=== PATIENT | male | born 1940 | race Caucasian/White ===

== ENCOUNTER 2016-09-10 14:10 | Emergency (ER) | payer MEDICARE ==
[2016-09-10 14:52] LABS: BASO # 0.1 K/mm3 (0.0-0.2); BASO % 1.9 % (0.0-1.0); EOS # 0.2 K/mm3 (0.0-0.50); EOS % 3.1 % (0.0-3.0); LARGE UNSTAINED CELL # 0.2 K/mm3 (0.0-0.4); LARGE UNSTAINED CELL % 3.4 % (0.0-4.0); LYMPH # 2.4 K/mm3 (1.5-4.5); LYMPH % 33.9 % (24.0-44.0); MEAN CORPUSCULAR HEMOGLOBIN 32.3 pg (27.0-33.0); MEAN CORPUSCULAR HGB CONC 34.7 g/dl (32.0-36.5); MEAN CORPUSCULAR VOLUME 93.2 fl (80.0-96.0); MONO # 0.6 K/mm3 (0.0-0.8); NEUTROPHILS # 3.4 K/mm3 (1.8-7.7); NEUTROPHILS % 48.6 % (36.0-66.0); PLATELET COUNT, AUTOMATED 174 k/mm3 (150-450); RED CELL DISTRIBUTION WIDTH 12.2 % (11.5-14.5)
[2016-09-10 14:59] LABS: INR 0.87
[2016-09-10] MEDS ORDERED: NS 500 ML IV ONE (15:15)
[2016-09-10 15:34] LABS: ALBUMIN/GLOBULIN RATIO 0.98 (1.00-1.93); ALT/SGPT 16 U/L (12-78); ANION GAP 12 MEQ/L (8-16); AST/SGOT 12 U/L (15-37); BILIRUBIN,DIRECT 0.2 MG/DL (0.0-0.2); BILIRUBIN,TOTAL 0.7 MG/DL (0.2-1.0); BLOOD UREA NITROGEN 19 MG/DL (7-18); CALCIUM LEVEL 9.6 MG/DL (8.8-10.2); CARBON DIOXIDE LEVEL 23 MEQ/L (21-32); CHLORIDE LEVEL 105 MEQ/L (98-107); GLOMERULAR FILTRATION RATE 52.6 (>42); GLUCOSE, FASTING 94 MG/DL (83-110); MAGNESIUM LEVEL 2.5 MG/DL (1.8-2.4); POTASSIUM SERUM 3.6 MEQ/L (3.5-5.1); SODIUM LEVEL 140 MEQ/L (136-145); TOTAL PROTEIN 8.1 GM/DL (6.4-8.2)
--- NOTE | 2016-09-10 15:39 | REP ---
Clinical: Syncope . Comparison: None . Technique: PA and lateral. Findings: The mediastinum and cardiac silhouette are normal. The lung dunn demonstrate chronic-appearing changes and without acute consolidation, effusion, or pneumothorax. The skeletal structures are intact and normal. Impression: 1. No acute cardiopulmonary process. Signed by Levi Nunez MD 09/10/2016 03:31 P
[2016-09-10 15:40] LABS: ALKALINE PHOSPHATASE 97 U/L (45-117); FREE T4 1.36 NG/DL (0.76-1.46)
[2016-09-10] MEDS ORDERED: NEUTRA-PHOS 1.25 GM PACKET PO ONE (16:00)
[2016-09-10] MEDS ORDERED: ISOVUE-370 76% 100ML VIAL (Q9967) As Ordered ONE (16:13)
--- NOTE | 2016-09-10 16:45 | REP ---
Clinical: Shortness of breath and near syncope. Technique: Axial contrast enhanced images from the thoracic inlet to the upper abdomen using 100 ml Isovue 370 intravenous contrast material with coronal and sagittal re-formations. Findings: Satisfactory enhancement of the pulmonary vasculature is achieved and no filling defects are identified to suggest pulmonary embolus. Thoracic aorta is normal caliber without aneurysm or dissection. Mild cardiomegaly suggested. Bilateral lung dunn demonstrate age-related chronic changes and posterior dependent changes without acute pulmonary parenchymal consolidation or atelectasis. No pleural effusion/reaction. No pneumothorax. No adenopathy. Impression: No evidence for pulmonary embolus. Cardiomegaly and chronic interstitial changes without obvious acute process. Minimal posterior dependent changes. Signed by Levi Nunez MD 09/10/2016 04:37 P
[2016-09-10 17:42] VITALS: BP 154/74
--- NOTE | 2016-09-11 07:37 | ECGEPIP ---
Stationary ECG Study [facility] - ED Test Date: 2016-09-10 Pat Name: JOSÉ MIGUEL SINGH Department: Room: - Gender: M Produce Manager: TIA : 1940 Requested By: EDU Bhakta Order Number: [id number] Reading MD: Sanjana Gomez Measurements Intervals Bostic Rate: 62 P: 37 MT: 177 QRS: 25 QRSD: 79 T: 45 QT: 448 QTc: 458 Interpretive Statements SINUS RHYTHM NSTTW ABNORMALITY LOW [place] NO PRIOR FOR COMPARISON Electronically Signed On 09-11-2016 7:36:59 EDT by Sanjana Gomez
== END 2016-09-10 17:44 | disposition left against medical advice (07) ==
LOC: M ED 14:10
DX: R55 Syncope and collapse (principal); R06.02 Shortness of breath; I10 Essential (primary) hypertension; I25.10 Atherosclerotic heart disease of native coronary artery without angina pectoris; E78.9 Disorder of lipoprotein metabolism, unspecified; Z95.5 Presence of coronary angioplasty implant and graft
CPT/HCPCS: 71020; 71275; 80048; 80076; 82550; 82553; 83735; 83880; 84100; 84439; 84443; 84484; 85025; 85610; 85730; 93005; 93041; 94760; 96360; 96361; 99285; Q9967